=== PATIENT | male | born 1970 | race Caucasian/White ===

== ENCOUNTER 2016-06-10 14:16 | Observation (INO) ==
[2016-06-10] MEDS ORDERED: TRANDATE IVP STA (14:48)
[2016-06-10] MEDS ORDERED: ASPIRIN CHEWABLE PO STA (14:48)
[2016-06-10 15:10] LABS: BASOPHILS % (AUTO) 0.3 % (0.0-3.0); EOSINOPHILS # (AUTO) 0.2 K/ul (0.0-0.7); EOSINOPHILS % (AUTO) 1.6 % (0.0-7.0); HEMATOCRIT 42.3 % (42.0-52.0); HEMOGLOBIN 14.5 g/dl (14.0-18.0); IMMATURE GRANULOCYTE % (AUTO) 0.5 % (0.0-5.0); LYMPHOCYTES # (AUTO) 3.3 K/uL (0.60-3.4); LYMPHOCYTES % (AUTO) 25.5 (10.0-50.0); MEAN CORPUSCULAR HEMOGLOBIN 28.4 pg (27.0-31.0); MEAN CORPUSCULAR HGB CONC 34.3 (31.8-35.4); MEAN CORPUSCULAR VOLUME 82.8 fl (80.0-94.0); MONOCYTES # (AUTO) 0.6 K/uL (0.4-2.0); MONOCYTES % (AUTO) 4.8 (0-10); NEUTROPHILS # (AUTO) 8.6 K/ul (2.0-6.9); NEUTROPHILS % (AUTO) 67.3; PLATELET COUNT 206 10^3/uL (140-440); RED BLOOD COUNT 5.11 10^6/ul (4.70-6.10); WHITE BLOOD COUNT 12.78 K/ul (4.2-10.2)
--- NOTE | 2016-06-10 15:27 | DI ---
EXAM: Single view of the chest. History: Chest pain. Comparison: Chest radiograph 07/03/2015 Findings: Prominent heart size. No focal consolidation. No appreciable pleural fluid and no pneum othorax. No acute osseous abnormalities. Impression: No acute cardiopulmonary process.
[2016-06-10 15:30] LABS: ALANINE AMINOTRANSFERASE 38 U/L (12-78); ALBUMIN 3.6 g/dL (3.4-5.0); ALBUMIN/GLOBULIN RATIO 1.09; ALKALINE PHOSPHATASE 66 U/L (50-136); ASPARTATE AMINO TRANSFERASE 17 U/L (15-37); BILIRUBIN,TOTAL 0.91 mg/dL (0.00-1.20); BLOOD UREA NITROGEN 14 mg/dL (7-18); BUN/CREATININE RATIO 12.38; CALCIUM 9.3 mg/dL (8.2-10.2); CARBON DIOXIDE 25 mmol/L (21-32); CHLORIDE 105 mmol/L (98-107); CREATINE KINASE 42 U/L; CREATININE 1.13 mg/dL (0.60-1.10); GLUCOSE 146 mg/dL (70-100); SODIUM 140 mmol/L (136-145); TOTAL PROTEIN 6.9 g/dL (6.4-8.2)
--- NOTE | 2016-06-10 16:06 | ED.PDOC ---
General ED Provider: Dr. FELI [address]RE[address] Chief Complaint: Chest Pain Stated Complaint: CHEST PAIN Time Seen by Physician: 14:20 (NURSE PRESENT) Mode of Arrival: Walk-In Information Source: Patient Exam Limitations: No limitations Nursing and Triage Documentation Reviewed and Agree: Yes (DID NOT FOLLOW UP WITH CHEST PAIN X1 YR) Cardiovascular Complaint Exam - Chest Pain Complaint/Exam Onset: Gradual Duration: 1 DAY Symptoms Are: Resolved Timing: Constant, Intermittent Length of Chest Pain Episodes: 1 DAY Initial Severity: Mild Current Severity: Mild Location: Reports: Midsternal Pain Radiates: Reports: None Character: Reports: Aching Aggravating: Reports: None Alleviating: Reports: None Associated Signs and Symptoms: Denies: Diaphoresis, Nausea, Vomiting, Fever, Palpitations, Cough, Hemoptysis, Back pain, Abdominal pain, Dizziness, Short of air, Calf pain, Calf swelling Related History: Reports: Similar episode Related Surgical History: Reports: None History of Healthcare-Acquired Pneumonia: Reports: No AMI/ACS Risk Factors: Reports: None TAD Risk Factors: Reports: Hypertension Pulmonary Embolism Risk Factors: Reports: None Recent Stress Test: No Recent Echo/LV Function: No JVD Present: No Subcutaneous Emphysema Present: No Diminshed Breath Sounds: No Reproducible Chest Wall Pain: No Bilateral Pulses Present: No Unequal Pulses Noted: No Differential Diagnoses: Acute CO, ACS, Lower Resp. Infection Review of Systems - Review Of Systems Constitutional: Reports: No symptoms Eyes: Reports: No symptoms Ears, Nose, Mouth, Throat: Reports: No symptoms Respiratory: Reports: No symptoms Cardiac: Reports: Chest pain GI: Reports: No symptoms : Reports: No symptoms Musculoskeletal: Reports: No symptoms Skin: Reports: No symptoms Neurological: Reports: No symptoms Endocrine: Reports: No symptoms Hematologic/Lymphatic: Reports: No symptoms All Other Systems: Reviewed and Negative Past Medical History - Past Medical History Previously Healthy: Yes Endocrine: Reports: None Cardiovascular: Reports: None Respiratory: Reports: None Hematological: Reports: None Gastrointestinal: Reports: None Genitourinary: Reports: None Neuro/Psych: Reports: None Musculoskeletal: Reports: None Cancer: Reports: None - Surgical History General Surgical History: Reports: None - Family History Family History: Reports: None - Social History Smoking Status: Former smoker, Dips snuff Hx Substance Use: No Alcohol Screening: None Physical Exam - Physical Exam Appearance: Well-appearing, No pain distress, Well-nourished Eyes: OLGA, EOMI, Conjunctiva clear ENT: Ears normal, Nose normal, Oropharynx normal Respiratory: Airway patent, Breath sounds clear, Breath sounds equal, Respirations nonlabored Cardiovascular: RRR, Pulses normal, No rub, No murmur GI/: Soft, Nontender, No masses, Bowel sounds normal, No Organomegaly Musculoskeletal: Normal strength, ROM intact, No edema, No calf tenderness Skin: Warm, Dry, Normal color Neurological: Sensation intact, Motor intact, Reflexes intact, Cranial nerves intact, Alert, Oriented Psychiatric: Affect appropriate, Mood appropriate Interpretation - Radiology Interpretation Radiology Interpretation By: Radiologist Radiology Results: No acute changes Physician Notification - Case Discussed Physician Notified: HOSPITALIST Time of Notification: 16:07 Admit To: Inpatient Critical Care Note - Critical Care Note Total Time (mins): 0 Course - Course Hematology/Chemistry: 06/10/16 15:00 06/10/16 15:00 Orders, Labs, Meds: Lab Review 06/10/16 15:00 WBC 12.78 H RBC 5.11 Hgb 14.5 Hct 42.3 MCV 82.8 MCH 28.4 MCHC 34.3 RDW Coeff of José Miguel 13.2 Plt Count 206 Immature Gran % (Auto) 0.5 Neut % (Auto) 67.3 Lymph % (Auto) 25.5 King % (Auto) 4.8 Eos % (Auto) 1.6 Baso % (Auto) 0.3 Immature Gran # (Auto) 0.1 Neut # 8.6 H Lymph # 3.3 King # 0.6 Eos # 0.2 Baso # 0.0 D-Dimer 0.19 Sodium 140 Potassium 4.0 Chloride 105 Carbon Dioxide 25 Anion Gap 14.0 BUN 14 Creatinine 1.13 H Estimated GFR (MDRD) 71.00 BUN/Creatinine Ratio 12.38 Glucose 146 H Calcium 9.3 Total Bilirubin 0.91 AST 17 ALT 38 Alkaline Phosphatase 66 Total Creatine Kinase 42 Troponin I < 0.0100 B-Natriuretic Peptide < 10 Total Protein 6.9 Albumin 3.6 Globulin 3.3 Albumin/Globulin Ratio 1.09 Orders Category Date Time Status EKG-(ED ONLY) Stat CARDIO 06/10/16 14:47 Completed ED IV/MEDIPORT/POWERPORT .ONCE EMERGENCY 06/10/16 14:47 Active B-TYPE NATRIURETIC PEPTIDE Stat LAB 06/10/16 15:00 Completed CBC W/ AUTO DIFF Stat LAB 06/10/16 15:00 Completed COMPREHENSIVE METABOLIC PANEL Stat LAB 06/10/16 15:00 Completed CREATINE KINASE Stat LAB 06/10/16 15:00 Completed D-DIMER Stat LAB 06/10/16 15:00 Completed TROPONIN I Stat LAB 06/10/16 15:00 Completed 0.9 % Sodium Chloride [Saline Flush] MEDS 06/10/16 14:47 Active 1 syr IVF PRN PRN Aspirin [Aspirin Chewable] MEDS 06/10/16 14:48 Discontinued 324 mg PO ONCE STA Labetalol HCl [Trandate] MEDS 06/10/16 14:48 Discontinued 20 mg IVP ONCE STA CHEST, 1V AP ONLY Stat RADS 06/10/16 14:47 Completed Medications Generic Name Dose Route Start Last Admin Trade Name Freq PRN Reason Stop Dose Admin Sodium Chloride 1 syr 06/10/16 14:47 06/10/16 15:18 Saline Flush IVF 1 syr PRN PRN Administration To flush IV Discontinued Medications Generic Name Dose Route Start Last Admin Trade Name Freq PRN Reason Stop Dose Admin Aspirin 324 mg 06/10/16 14:48 06/10/16 15:05 Aspirin Chewable PO 06/10/16 14:49 324 mg ONCE STA Administration Labetalol HCl 20 mg 06/10/16 14:48 06/10/16 15:14 Trandate IVP 06/10/16 14:49 20 mg ONCE STA Administration Vital Signs: Temp Pulse Resp BP Pulse Ox 06/10/16 14:18 97.1 F L 80 16 157/80 H 97 NANCY Risk Score NANCY Risk Score: Risk Score Odds of by 30D 0 0.1 (0.1-0.2) 1 0.3 (0.2-0.3) 2 0.4 (0.3-0.5) 3 0.7 (0.6-0.9) 4 1.2 (1.0-1.5) 5 2.2 (1.9-2.6) 6 3.0 (2.5-3.6) 7 4.8 (3.8-6.1) Departure - Departure Time of Disposition: 16:06 Disposition: ADMITTED INPATIENT Discharge Problem: Chest pain, Hypertensive urgency Instructions: Angina (ED), Chest Pain (ED) Condition: Good Pt referred to PMD for follow-up: Yes (ADMITT/HOSPITALIST) Additional Instructions: Please call your Family Physician as soon as possible to schedule a follow-up appointment. Allergies/Adverse Reactions: Allergies No Known Allergies Allergy (Unverified 06/10/16 14:18) Home Medications: Ambulatory Orders 1 [No Reported Medications] 06/10/16
[2016-06-10 17:17] VITALS: BMI 40.0
[2016-06-10] MEDS: SODIUM CHLORIDE 1,000 ML IV SCH (17:22)
[2016-06-10] MEDS ORDERED: DECADRON 4 MG/ML SDV ONE (19:10)
[2016-06-10] MEDS ORDERED: TORADOL ONE (19:10)
[2016-06-10] MEDS ORDERED: DECADRON 4 MG/ML SDV IM STA (19:10)
[2016-06-10] MEDS ORDERED: TORADOL IVP STA (19:11)
[2016-06-10] MEDS: ASPIRIN EC PO SCH (19:13)
[2016-06-10 23:07] LABS: CREATINE KINASE 31 U/L
[2016-06-11] MEDS: SODIUM CHLORIDE 1,000 ML IV SCH ×2 (05:50→06:09)
[2016-06-11 07:20] LABS: BASOPHILS % (AUTO) 0.2 % (0.0-3.0); HEMATOCRIT 41.4 % (42.0-52.0); HEMOGLOBIN 14.1 g/dl (14.0-18.0); IMMATURE GRANULOCYTE % (AUTO) 0.6 % (0.0-5.0); LYMPHOCYTES # (AUTO) 1.7 K/uL (0.60-3.4); LYMPHOCYTES % (AUTO) 10.5 (10.0-50.0); MEAN CORPUSCULAR HEMOGLOBIN 28.1 pg (27.0-31.0); MEAN CORPUSCULAR HGB CONC 34.1 (31.8-35.4); MEAN CORPUSCULAR VOLUME 82.5 fl (80.0-94.0); MONOCYTES # (AUTO) 0.3 K/uL (0.4-2.0); MONOCYTES % (AUTO) 2.2 (0-10); NEUTROPHILS # (AUTO) 13.6 K/ul (2.0-6.9); NEUTROPHILS % (AUTO) 86.5; PLATELET COUNT 212 10^3/uL (140-440); RED BLOOD COUNT 5.02 10^6/ul (4.70-6.10); WHITE BLOOD COUNT 15.73 K/ul (4.2-10.2)
[2016-06-11 08:05] LABS: ALANINE AMINOTRANSFERASE 34 U/L (12-78); ALBUMIN 3.3 g/dL (3.4-5.0); ALBUMIN/GLOBULIN RATIO 1.03; ALKALINE PHOSPHATASE 60 U/L (50-136); ANION GAP 14.4; ASPARTATE AMINO TRANSFERASE 13 U/L (15-37); BILIRUBIN,TOTAL 1.18 mg/dL (0.00-1.20); BLOOD UREA NITROGEN 16 mg/dL (7-18); BUN/CREATININE RATIO 13.22; CALCIUM 9.1 mg/dL (8.2-10.2); CARBON DIOXIDE 20 mmol/L (21-32); CHLORIDE 108 mmol/L (98-107); CHOL/HDL RATIO 4.5 (4.5-6.4); CHOLESTEROL 156 mg/dL (0-200); CREATINE KINASE 32 U/L; CREATININE 1.21 mg/dL (0.60-1.10); GLUCOSE 197 mg/dL (70-100); HDL CHOLESTEROL 35 mg/dL (35-60); POTASSIUM 4.4 mmol/L (3.5-5.1); SODIUM 138 mmol/L (136-145); TOTAL PROTEIN 6.5 g/dL (6.4-8.2); TRIGLYCERIDES 109 mg/dL (30-150); VLDL CHOLESTEROL 22 mg/dL (2-30)
[2016-06-11] MEDS: ASPIRIN EC PO SCH (08:35)
[2016-06-11] MEDS ORDERED: LOVENOX SUBCUT SCH (09:00)
[2016-06-11 11:19] VITALS: BP 137/72; TEMP 98.3
--- NOTE | 2016-06-16 13:44 | MODSTECHO ---
Ordering Physician: HOSPITALIST--EVERETT RUIZ Date of Test: 06/11/16 Medical History: CHEST PAIN, SOB Current Medications: NO HOME MEDS Physical Findings: S1, S2, NO S3 Resting EKG: SINUS RHYTHM/NO ACUTE CHANGES Target Heart Rate: 150/177 STAGE MPH/GRADE HEART RATE BLOOD PRESSURE RHYTHM S-T SEGMENT UP DOWN SYMPTOMS, COMMENTS At Rest 78 142/60 SR X NONE 1 1.7/0% 110 138/70 SR X NONE 2 1.7/5% 120 SR X NONE 3 1.7/10% 4 2.5/12% 5 3.4/14% 6 4.2/16% 7 5.18% Immediately after 135 SR X SHORT OF BREATH Total Time: 6:31 Maximum Heart Rate Reached: 135 4 MIN POST EXERCISE--88/BPM, 128/74MMHG, SINUS RHYTHM, ST +/- INTERPRETATION: 96% OXYGEN SATURATION WITH EXERCISE ON ROOM AIR METS 4.0 1. NO EVIDENCE OF ISCHEMIA BY ST-T WAVE CHANGES 2. NO CHEST PAIN OR CHEST DISCOMFORT 3. NO ARRHYTHMIAS 4. BLOOD PRESSURE RESPONSE: NORMAL NORMAL LEFT VENTRICULAR CONTRACTILITY--RESTING AND POST EXERCISE BY ECHO MTDD
--- NOTE | 2016-06-16 13:46 | ECHOSTRESS ---
Date of Exam: 06/11/16 Ordering Physician: HOSPITALIST--EVERETT RUIZ Reason for Echo: CHEST PAIN, SOB, STRESS TEST--NO ISCHEMIA M-Mode Normal Adult Results LV Dimensions Normal Adult Results AoV Opening excursions >1.6 LVEDD-base- 3.5-5.8 Ao root dimensions 2.0-3.7 LVESD-base- 3.1-4.6 L. Atrium dimensions 1.9-3.8 Post. Wall thickness 0.8-1.1 IV septum (thickness) 0.7-1.2 Post. Wall excursion 0.72-1.3 Septal motion Systolic motion R. Ventricular cavity 1.5-2.0 LVEF 60% Paradoxical septal wall motion 2-D: NORMAL LEFT VENTRICULAR CONTRACTILITY--RESTING AND POST EXERCISE M-MODE: MV: AV: TV: PV: CHAMBER SIZE: WALL MOTION: NORMAL LEFT VENTRICULAR CONTRACTILITY--RESTING AND POST EXERCISE PERICARDIUM: INTERPRETATION: 1. NORMAL LEFT VENTRICULAR CONTRACTILITY--RESTING AND POST EXERCISE MTDD
--- NOTE | 2016-06-16 13:52 | ECHO2D ---
Date of Exam: 06/11/16 Ordering Physician: HOSPITALIST--EVERETT RUIZ Reason for Echo: CHEST PAIN, SOB M-Mode Normal Adult Results LV Dimensions Normal Adult Results AoV Opening excursions >1.6 >1.6 LVEDD-base- 3.5-5.8 4.6 Ao root dimensions 2.0-3.7 3.0 LVESD-base- 3.1-4.6 L. Atrium dimensions 1.9-3.8 4.2 Post. Wall thickness 0.8-1.1 1.1 IV septum (thickness) 0.7-1.2 1.1 Post. Wall excursion 0.72-1.3 NORMAL Septal motion NORMAL Systolic motion R. Ventricular cavity 1.5-2.0 NORMAL LVEF 60% 62% Paradoxical septal wall motion NORMAL 2-D : 2-D M Mode Echocardiogram was performed using apical four chamber and left parasternal long and short axis views. Mitral, tricuspid and aortic valves appear to be normal. Contractility of the left ventricle seems to be normal, so is the cavity size. Left atrial cavity size and aortic root appear to be normal. There is no pericardial effusion. There is no thrombus noted in the left ventricular or left aortic cavity. No mitral valve prolapse noted. M-MODE: MV: NORMAL AV: NORMAL TV: NORMAL PV: CHAMBER SIZE: NORMAL WALL MOTION: NORMAL PERICARDIUM: NORMAL INTERPRETATION: 1. NORMAL VALVES 2. NORMAL LEFT VENTRICULAR CONTRACTILITY 3. BORDERLINE ENLARGED LEFT ATRIAL CAVITY MTDD
--- NOTE | 2016-06-17 14:25 | CONS ---
DATE OF SERVICE: 06/11/16 CONSULT FOLLOWUP DATE OF CONSULTATION: 06/11/16 REASON FOR CONSULTATION: Chest pain. HISTORY OF PRESENT ILLNESS: 44-year-old white male was seen in consultation for chest pain. The patient's chest pain is sharp, center of the chest, comes and goes for the past couple of days. The patient was evaluated and seen for chest pain of similar type on July 03, 2015.The patient had stress echo which was negative for ischemia. The echocardiogram 2D and 'M' mode was normal. REVIEW OF SYSTEMS: CONSTITUTIONAL: Weakness and fatigue. No fever, no chills. HEENT: Eyes: No visual changes. No eye pain. No eye discharge. ENT: No runny nose. No epistaxis. No sinus pain. No sore throat. No odynophagia. No ear pain. No congestion. RESPIRATORY: No cough, no congestion. No hemoptysis. CARDIOVASCULAR: Sharp, shooting chest pain that comes and goes, lasts for a few moments, nonexertional. No radiation of pain to any other part of the body. No sweating. GASTROINTESTINAL: No abdominal pain. No nausea or vomiting. No diarrhea or constipation. No hematemesis. No hematochezia. GENITOURINARY: No urgency. No frequency. No dysuria. No hematuria. No obstructive symptoms. No discharge. No pain. No significant abnormal bleeding. MUSCULOSKELETAL: No musculoskeletal pain. No joint swelling. NEUROLOGICAL: No headache. No neck pain. No syncope. No seizures. No dizziness. PSYCHIATRIC: Not anxious. No depression. No suicidal thoughts. No homicidal thoughts. SKIN: No rash. No lesions. No wounds. ENDOCRINE: No unexplained weight loss. No weight gain. HEMATOLOGIC/LYMPHATIC: No anemia. No purpura. No petechiae. No prolonged or excessive bleeding. No palpable lymph nodes. PHYSICAL EXAMINATION: GENERAL: The patient is oriented to time, place and person. VITAL SIGNS: Temperature 97.4, pulse 83, respiratory rate 16, BP 127/72, pulse ox 96%. HEENT: Head normocephalic, atraumatic. Eyes: Extraocular muscles are intact. Pupils are equal, round and reactive to light and accommodation. Ears: No lesions. Nose appeared normal. Throat: No exudate or erythema. NECK: Supple. No JVD, no carotid bruit. No lymphadenopathy or thyromegaly. LUNGS: Clear to auscultation. Percussion note normal. Chest symmetrical. HEART: S1, S2, no S3. No murmurs. No cyanosis or clubbing. No ascites. Pulses: Dorsalis pedis and posterior tibial pulses +1 to +2 both sides. ABDOMEN: Soft. Nontender. Bowel sounds active. No CVA tenderness. No mass felt. EXTREMITIES: No edema. Full range of motion of all extremities, equal. NEUROLOGIC: No focal deficit. Cranial nerves II through XII are grossly intact. No headache, no double vision or headache. SKIN: Not dry. Intact. Turgor - normal. LYMPHATIC: No palpable lymph nodes/no lymphedema. MUSCULOSKELETAL: Normal joints with no swelling. Muscle tone is normal. LABS: Hemoglobin 14.1, hematocrit 41, WBC 15,000, normal differential. Creatinine 1.2 , BUN 16, potassium 4.4. T4, TSH normal. ASSESSMENT: 1. CHEST PAIN SEEMS TO BE NONCARDIAC. 2. GASTROESOPHAGEAL REFLUX DISEASE 3. HYPERGLYCEMIA 4. BMI 40 WITH MORBID OBESITY PLAN: 1. The patient had an echocardiogram done, which was normal 2D and 'M'Mode. Also the patient had a stress echo this morning which was negative for ischemia. 2. Considering the patient's symptoms and putting everything together with serial EKGs, cardiac markers, the patient doesn't have this chest pain related to cardiovascular system. 3. The patient is strongly advised to lose weight, weight loss diet discussed. [place] BMI 23+ minus discussed. 4. The patient is also advised to cut down on carbohydrates, dairy products. 5. His lipid profile was acceptable in June, repeat again. The patient is advised to have regular followup with primary M.D. 6. The creatinine and BUN noted 1.2 and 16 indicating chronic kidney disease, Stage 2. Advised not to use nonsteroidal antiinflammatories and have a followup on that finding. Glucose needs to be monitored with A1C. Discussed that with the patient. \ The patient's case discussed with attending. CONDITION: Stable. MTDD
--- NOTE | 2016-06-20 13:26 | CONS ---
DATE OF CONSULTATION: 06/10/16 REASON FOR CONSULTATION: Chest Pain HISTORY OF PRESENT ILLNESS: Recent pneumonia(Apr. And May) now with intermittent episodes of sharp, squeezing pain in the center of this chest. No radiation of pain. No nausea. No diaphoresis. No edema. No abdominal pain. REVIEW OF SYSTEMS: CONSTITUTIONAL: No night sweats. No fatigue, malaise, lethargy. No fever or chills. HEENT: Eyes: No visual changes. No eye pain. No eye discharge. ENT: No runny nose. No epistaxis. No sinus pain. No sore throat. No odynophagia. No ear pain. No congestion. RESPIRATORY: Cough infrequent due to recent pneumonia, no congestion. No hemoptysis. CARDIOVASCULAR: No angina symptoms. No CHF symptoms. No atypical chest pain for CAD. No palpitations. No shortness of breath. GASTROINTESTINAL: No abdominal pain. No nausea or vomiting. No diarrhea or constipation. No hematemesis. No hematochezia. GENITOURINARY: No urgency. Frequency slow stream at times and small trickling stream at times. No dysuria. No hematuria. No obstructive symptoms. No discharge. No pain. No significant abnormal bleeding. MUSCULOSKELETAL: No musculoskeletal pain. No joint swelling. NEUROLOGICAL: No headache. No neck pain. No syncope. No seizures. No dizziness. PSYCHIATRIC: Not anxious. No depression. No suicidal thoughts. No homicidal thoughts. SKIN: No rash. No lesions. No wounds. Warm/ Dry. ENDOCRINE: No unexplained weight loss. No weight gain. HEMATOLOGIC/LYMPHATIC: No anemia. No purpura. No petechiae. No prolonged or excessive bleeding. No palpable lymph nodes. MEDICATIONS: ProAir inhaler since pneumonia. Uses only PRN ALLERGIES: No known allergies PAST MEDICAL HISTORY: Pneumonia(Nov) Chest pain one year ago with negative stress test (06/23) and echo (06/23) normal with LVEF 66% Hypertension PAST SURGICAL HISTORY: Tonsillectomy SOCIAL/PERSONAL/FAMILY HISTORY: Smoking: Dips snuff. No alcohol use. . PHYSICAL EXAMINATION: GENERAL: The patient is oriented times 3. VITAL SIGNS: Pulse 83, blood pressure 127/72, temperature 97.4 and pulse ox 96% on room air. HEENT: Head normocephalic, atraumatic. Eyes: Extraocular muscles are intact. Pupils are equal, round and reactive to light and accommodation. Ears: No lesions. Nose appeared normal. Throat: No exudate or erythema. NECK: Supple. No JVP, no carotid bruit. No lymphadenopathy or thyromegaly. LUNGS: Clear to auscultation. Percussion note normal. Chest symmetrical. HEART: S1, S2, no S3. No murmurs. No cyanosis or clubbing. No ascites. Pulses: Dorsalis pedis and posterior tibial pulses +1. ABDOMEN: Soft. Nontender. Bowel sounds active. No CVA tenderness. No mass felt. EXTREMITIES: No edema. Full range of motion of all extremities, equal. NEUROLOGIC: No focal deficit. Cranial nerves II through XII are grossly intact. No headache, no double vision or headache. SKIN: Not dry. Intact. Turgor - normal. LYMPHATIC: No palpable lymph nodes/no lymphedema. MUSCULOSKELETAL: Normal joints with no swelling. Muscle tone is normal. LABS: Chest x-ray prominent heart size. No acute process WBC 12.78, creatinine 1.13, glucose 146, Troponin within normal limits x3, BNP < 10, TSH 0.559, Free T4 0.85, Triglycerides 109, Cholesterol 156 and Non HDL 121 ASSESSMENT: 1. Chest pain, non-cardiac PLAN: 1. Echo 2. Stress echo 3. Lipid Profile 4. Diet discussed 5. Advise to discontinue tobacco. Thanks for referral. Will follow. GIOVANNY
--- NOTE | 2016-07-17 09:59 | SSS ---
CHIEF COMPLAINT: Intermittent anterior chest pain. HISTORY OF PRESENT ILLNESS: The patient claimed to have experienced intermittent pain of the anterior chest of very duration. The pain is sharp. The pain was not accompanied by nausea, anorexia or diaphoresis. He presented to the emergency room and the work up was negative for any acute myocardial injuries. This patient, however, was admitted for further studies including aa cardiology consultation and probably a stress echocardiogram. PAST PERSONAL HISTORY: This patient had a previous appendectomy and tonsillectomy years ago. He also had a pneumonia. He was admitted 07/03/15. about a year ago, because of chest pain, pricking needle type pain in the chest and the work up was negative. FAMILY HISTORY: Father had melanoma and hypertension. Uncle had COPD from smoking. No diabetes. No coronary artery disease or CVA in the family. SOCIAL HISTORY: The patient is and resides with his . 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 He stopped smoking some 9 years ago. He used to smoke a pack and a half a day. Before smoking he was chewing tobacco. After he stopped smoking, he went back to tobacco chewing and placed the tobacco in the front of his lower lip. He also stopped drinking alcohol eight years ago. He described himself as a heavy user of alcohol and he admitted to using cocaine in his early twenties. MEDICATIONS: Prior to this admission. None. ALLERGIES: No known drug allergies. REVIEW OF SYSTEMS: CONSTITUTIONAL: The patient has no fever and no chills and no fatigue. 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 No weakness of either right or left, upper or lower extremities. No history of seizure and no history of loss of consciousness. VISUAL: Denies any blurred vision or double vision or transient loss of vision. AUDITORY: No hearing loss. Denies any tinnitus, drainage or pain. RESPIRATORY: Denies any shortness of breath and no significant cough and no history of hemoptysis. CARDIOVASCULAR: He has chest pain, which is sharp and very short in duration and intermittent. It continued through the night. The pain is not accompanied by nausea, anorexia or diaphoresis or weakness. GASTROINTESTINAL: The patient has no nausea, no vomiting and no abdominal pain. The patient denied any dysphagia. GENITOURINARY: The patient has frequency, as well as hesitancy. INTEGUMENT: Denies any rash or pruritus. ENDOCRINE: Denies any polyuria or polydipsia. HEMATOLOGIC: No history of prolonged bleeding or easy bruising. PSYCHIATRIC: Affect is normal. He is cooperative and cheerful. PHYSICAL EXAMINATION: GENERAL: He have a 45 year old male seen at the emergency room initially because of chest pain with a negative workup for any acute myocardial injury and was admitted to the hospital. He is listed at 5'6", weighing 248 pounds on the floor and 258 pounds in the emergency room. BMI was listed at 40.0. This patient received Trandate 20 mg in the emergency room for hypertensive urgency according to the emergency room physician. However, his blood pressure was recorded at 157/80. I could not find any other reading. The 157/80 was recorded by the triage nurse. VITAL SIGNS: Temperature 98.1, pulse 68, blood pressure 133/78, respiratory rate 18, oxygen saturation 98 at room air. HEAD: Unremarkable. FACE: Symmetrical and equal with no facial weakness. No tenderness to palpation in the frontal or maxillary sinus areas under pressure. EYES: Pupils equal/reactive to light about 3 mm in size. Conjunctivae not pale. Sclerae not icteric. MOUTH: Unremarkable. No dentures. THROAT: No inflammation, no tumors. There is some roughness in the lower left midline buccal mucosa. NECK: No masses. No bruit. No tenderness. No rigidity. CHEST: Essentially symmetrical and equal with good expansion and no tenderness to palpation. LUNGS: Breath sounds are heard in both sides with no rales and no wheezing. HEART: Audible and regular with good tones. No murmurs. ABDOMEN: Protuberant, soft with no remarkable tenderness. No guarding. Bowel sounds are active. No masses palpable and no bruit. EXTERNAL GENITALIA: Not examined. RECTAL: Not performed. LOWER EXTREMITIES: Symmetrical and equal with no significant edema. Pedal pulse are present. UPPER EXTREMITIES: Symmetrical and equal. ASSESSMENT: 1. ANTERIOR CHEST PAIN, INTERMITTENT OF SHORT DURATION, ETIOLOGY UNDETERMINED. 2. ELEVATED BMI 40.0 3. HISTORY OF CHEST PAIN A YEAR AGO. NEGATIVE STUDIES 4. HISTORY OF TOBACCO USE AND ABUSE, CIGARETTES STOPPED SOME NINE YEARS AGO 5. HISTORY OF TOBACCO CHEWING AND PERSISTENT 6. HISTORY OF ETHANOL USE, STOPPED EIGHT YEARS AGO 7. HISTORY OF COCAINE USE IN EARLY TWENTIES 8. HISTORY OF PNEUMONIA HOSPITAL COURSE: The patient remained alert and oriented with stable vital signs. His blood pressure remained normal and the oxygen saturation remained satisfactory at room air. The patient during this admission had two CBC's showing slightly elevated WBC 12,780 to 15,730 with elevated neutrophils 8.6 and 13.6 respectively. Chemistries time two showed normal BUN, slightly elevated creatinine, E GFR 71 and 65. Blood sugar 146 on admission and 197 the following day. Troponin remained normal 0.0100 and remained 0.0100 the next day. BNP less than 10. CK 31 and 32 the following day. Lipid panel is normal. TSH is 0.559, normal. Normal Free T4. The patient had a chest x-ray in the emergency room and was read as no acute cardiopulmonary process. The patient was seen by the Glass Embosser, Dr. Brandin Santiago, and he did perform a stress test and the stress test showed no evidence of ischemia by ST-T wave changes. No chest pain or chest discomfort during exercise and no arrhythmias. Blood pressure response normal. Echocardiogram with normal left ventricular contractility. The valves were normal, as well as chamber sizes. Ejection fraction 62%. Normal left ventricular contractility. The patient on follow up remained alert, oriented times four and the chest pain had resolved. I did review with him the results of the test. I did tell him that there is no evidence on the tests that were done that the pain was coming from his heart. VITAL SIGNS: At discharge at 10 a.m. on 06/11/2016 showed a temperature of 98.3 , pulse 89, blood pressure 137/72, respiratory rate 16, oxygen saturation 95 at room air. GENERAL: He is alert and oriented. No dyspneic, nor tachypneic with no chest pain. LUNGS: Clear to auscultation in both sides. HEART: Normal sinus rhythm. LOWER EXTREMITIES: He denies any pain in both legs with ambulation. PLAN: 1. He is then discharged today with no medications. 2. He is advised to make an appointment with the [facility] the following week and he was provided the phone number [phone]. 3. Continue activity as tolerated. 4. Return to the emergency room if there is any recurrence of the pain. 5. This patient was advised to eat a healthy diet and coupled with exercise. FINAL DIAGNOSIS: 1. CHEST PAIN OF SHORT DURATION WITH NEGATIVE WORK-UP, ATYPICAL 2. ELEVATED BMI 40.0. 3. HISTORY OF CHRONIC TOBACCO USE AND ABUSE, STOPPED 9 YEARS AGO 4. HISTORY OF TOBACCO CHEWING, PERSISTENT 5. HISTORY OF PNEUMONIA The patient again was reminded to make sure that he makes an appointment with the clinic for follow up. GIOVANNY
== END 2016-06-11 18:00 | disposition home or self-care (01) ==
LOC: ED 14:16 → OBSVTOIN 16:17 → MEDSURG A 16:17 → INTOOBSV 16:17
PROVIDERS: ADMIT General Practice; ATTEND General Practice
DX: R07.89 Other chest pain (principal); I16.0 Hypertensive urgency; I10 Essential (primary) hypertension; K21.9 Gastro-esophageal reflux disease without esophagitis; R73.9 Hyperglycemia, unspecified; E66.01 Morbid (severe) obesity due to excess calories; F17.290 Nicotine dependence, other tobacco product, uncomplicated; F10.21 Alcohol dependence, in remission; Z68.41 Body mass index [BMI] 40.0-44.9, adult; Z87.01 Personal history of pneumonia (recurrent)
CPT/HCPCS: 36415; 80053; 80061; 82550; 83880; 84439; 84443; 84484; 85025; 85379; 93005; 93010; 96361; 96374; 99217; 99219; 99284